=== PATIENT | female | born 1955 | race Caucasian/White ===

== ENCOUNTER 2016-12-01 08:09 | Emergency (ER) | payer BC, MEDICAID ==
[~2016-12-01] VITALS: Ht 165.1 cm; Wt 88.0 kg
[~2016-12-01 08:09] MED LIST: ARIP2TAB PO; ATEN25TA PO; TRAZ50TA18 PO; VALA500T4 PO
[2016-12-01] MEDS ORDERED: SODIUM CHLORIDE FLUSH 10ML SYR IVF ONE (09:00)
[2016-12-01] MEDS ORDERED: SODIUM CHLORIDE 0.9% 1,000ML IVBOLUS ONE (09:00)
[2016-12-01] MEDS ORDERED: CEFTRIAXONE PMX 1GM/50ML 50 ML ONE ×2 (09:07→09:14)
[2016-12-01] MEDS ORDERED: CLON2TAB16 PO (09:25)
[2016-12-01] MEDS ORDERED: CEFTRIAXONE PMX 1GM/50ML 50 ML IVPB ONE (09:30)
[2016-12-01] MEDS ORDERED: AZITHROMYCIN 500 MG in SODIUM CHLORIDE 0.9% 250 ML IVPB ONE (09:30)
[2016-12-01 09:49] LABS: BLOOD UREA NITROGEN 16 mg/dL (7-18)
[2016-12-01 09:54] LABS: IS PT STATUS REG ER OR PRE ER? YES
[2016-12-01 11:19] VITALS: BP 135/86
== END 2016-12-01 11:22 | disposition home or self-care (01) ==
LOC: ED 11:15
DX: J18.1 Lobar pneumonia, unspecified organism (principal)
CPT/HCPCS: 36415; 71010; 80048; 82040; 83605; 83880; 84145; 84484; 85025; 87040; 93005; 96365; 96367; 99285; J0456; J0696; J7030; J7050

== ENCOUNTER 2020-05-02 12:55 | Outpatient (CLI) | payer MEDICARE ==
[~2020-05-02 12:55] MED LIST changes: -ARIP2TAB PO; +ARIP2TAB2 PO; +CLON2TAB16 PO; -TRAZ50TA18 PO; +TRAZ50TA66 PO
[2020-05-02] MEDS ORDERED: GADOTERATE 10 MMOL/20 ML VIAL ONE (13:45)
== END 2020-05-02 23:59 | disposition home or self-care (01) ==
LOC: RAD 12:55
PROVIDERS: ATTEND Internal Medicine
DX: D18.03 Hemangioma of intra-abdominal structures (principal); N28.1 Cyst of kidney, acquired; R10.9 Unspecified abdominal pain
CPT/HCPCS: 74183; A9575